=== PATIENT | female | born 1970 | race Caucasian/White ===

== ENCOUNTER → 2019-09-20 | Outpatient (CLI) | payer OTHER | END | disposition home or self-care (01) | LOC: LAB 11:00 | PROVIDERS: ATTEND Registered Nurse | DX: Z01.812 Encounter for preprocedural laboratory examination (principal); Z12.11 Encounter for screening for malignant neoplasm of colon; Z20.828 Contact with and (suspected) exposure to other viral communicable diseases | CPT/HCPCS: C9803; U0003; 36415 ==

== ENCOUNTER → 2019-09-24 | Day surgery (SDC) | payer OTHER ==
[~2019-09-24] MED LIST: IPRATRPIUM/ALBUTEROL 0.5/2.5MG 3 ML NEBU. NEB PRN; IV RINGERS SOLUTION,LACTATED 1,000 ML IV SCH; MIDAZOLAM HCL PF 2 MG/2 ML VIAL. IV ONE; ONDANSETRON PF 4 MG/2 ML VIAL. IV PRN; PROPOFOL 10,000 MCG/ML (20ML) VIAL IV ONE
[2019-09-24 11:01] VITALS: BP 124/88
--- NOTE | 2019-09-25 18:06 | PATHOLOGY ---
[facility] [place] Accession Number: [id number] . 01 Material submitted: . colon - TRANSVERSE COLON POLYP. Modifiers: transverse . 01 Clinical history: . None provided . 02 Diagnosis: Colon biopsies, transverse colon polyps: - Tubular adenomas. (JPM:jennifer; 09/25/2019) S 09/25/2019 0909 Local . 02 Comment: There is no high grade dysplasia or evidence of malignancy. (JPM:jennifer; 09/25/2019) . 02 Electronically signed: . Amilcar Hardy MD, Pathologist NPI- [id number] . 01 Gross description: . The specimen is received in formalin, labeled "Deb Trace, transverse colon polyp". Received are two segments of pale jackson soft tissue ranging in size from 0.3 to 0.6 cm in maximum dimensions. The specimen is submitted entirely in cassette A1. ([facility]; 09/24/2019) QA/QA 09/24/2019 1731 Local . 02 Pathologist provided ICD-10: D12.3 . 02 CPT . 751353 Specimen Comment: A courtesy copy of this report has been sent to [phone], [phone] Specimen Comment: [id number] Specimen Comment: Report sent to / DR SIU Performed at: 01 [facility] [address], [place] [id number] MD Hunter Pringle MD Phone: [phone] Performed at: 02 [facility] [address] [place], [place] [id number] MD Amilcar Hardy MD Phone: [phone]
== END | disposition home or self-care (01) ==
LOC: SURG 08:32
PROVIDERS: ATTEND Internal Medicine Gastroenterology
DX: Z12.11 Encounter for screening for malignant neoplasm of colon (principal); D12.3 Benign neoplasm of transverse colon; K63.89 Other specified diseases of intestine; M19.90 Unspecified osteoarthritis, unspecified site; F41.9 Anxiety disorder, unspecified; F32.9 Major depressive disorder, single episode, unspecified; Z98.890 Other specified postprocedural states; Z79.899 Other long term (current) drug therapy; Z90.710 Acquired absence of both cervix and uterus
CPT/HCPCS: 45385; J2704; J7120